=== PATIENT | female | born 1940 | race American Indian/Alaskan Native ===

== ENCOUNTER 2017-08-31 11:35 | Outpatient (CLI) | payer MEDICARE ==
--- NOTE | 2017-09-02 11:13 | Magnetic Resonance Report ---
BILATERAL BREAST MRI WITHOUT AND WITH CONTRAST: 08/31/17 11:35:00 CLINICAL: Newly diagnosed left breast cancer. COMPARISON:08/26/17 [facility] right mammogram and recent [facility] left mammograms. TECHNIQUE: Axial 1.0-mm T1 without, axial high resolution 2.0-mm T2 and axial 1.0-mm dynamic Vibrant high-resolution postcontrast T1 fat saturation sequences on a 1.5 Amanda magnet. The examination was performed with an 8 channel dedicated [place] breast coil. Post processing with CAD and subtraction was performed on an Assembly workstation. 15.0 cc of Multihance was injected without incident for the contrast portion of the exam. Consent was obtained prior to the administration of the contrast. FINDINGS: Right: Minimal background parenchymal enhancement. No mass or suspicious enhancement and specifically no finding in the upper outer quadrant to correlate with an asymmetry on the recent mammogram. No suspicious right axillary or right internal mammary lymph nodes. Left: Mild background parenchyma enhancement. The known cancer is an irregular enhancing mass at 6 o'clock 1.6 cm from the nipple measuring 2.1 x 2.0 x 2.2 cm. The mass contains a hydro-Jay biopsy clip. It demonstrates heterogeneous enhancement with mixed kinetics, 211% peak enhancement, and 24% type I persistent, 47% type II plateau and 29% type III washout waveforms. No other mass or suspicious enhancement. No suspicious left axillary or left internal mammary lymph nodes. IMPRESSION: 1. A known 2.2 cm left breast cancer and no additional suspicious lesion of either breast by MRI. However, after further review of the 08/26/17 right mammogram, a right stereotactic biopsy of upper outer calcifications is recommended to exclude malignancy. 2. No suspicious lymph nodes. RIGHT BI-RADS 4 -- Suspicious (Based on the mammographic finding of indeterminate right upper outer calcifications .) LEFT BI-RADS 6 -- Known Cancer
== END 2017-08-31 11:36 | disposition home or self-care (01) ==
LOC: SPVIMAG 11:35
PROVIDERS: ATTEND Surgery
DX: C50.412 Malignant neoplasm of upper-outer quadrant of left female breast (principal)
CPT/HCPCS: A9577; C8908; 77059

== ENCOUNTER 2017-09-06 13:41 | Outpatient (CLI) | payer MEDICARE ==
--- NOTE | 2017-09-06 16:14 | Mammography Report ---
STEREOTACTIC VACUUM ASSISTED BIOPSY WITH CLIP PLACEMENT RIGHT BREAST: 09/06/17 13:41:00 CLINICAL: Newly diagnosed left breast cancer and indeterminate calcifications of the right breast. COMPARISON:08/26/17 FINDINGS: Consent for the procedure was obtained. Calcifications in the upper-outer quadrant were targeted with stereotactic guidance. The skin was prepped with Betadine and anesthetized with 1% lidocaine. 2% lidocaine with epinephrine was injected for deeper anesthesia. 8 gauge Mammotome biopsy was performed from a lateral approach through a small dermatotomy. Prefire and post-fire images demonstrated satisfactory positioning of the probe. Samples were obtained around the clock face. A specimen radiograph confirmed satisfactory sampling with removal of desk representative calcifications. A clip was placed at the biopsy site and the deployment was confirmed with an image. The probe was removed and hemostasis was achieved with mild pressure. A sterile dressing was applied. The patient tolerated the procedure well and there were no apparent complications. Two view mammogram demonstrated removal of some calcifications and concordant placement of the biopsy clip. IMPRESSION: Uncomplicated stereotactic biopsy with clip placement right breast.
--- NOTE | 2017-09-06 16:15 | Mammography Report ---
RIGHT DIGITAL DIAGNOSTIC MAMMOGRAM: 09/06/17 13:41:00 CLINICAL: For clip placement immediately status post stereotactic biopsy. COMPARISON:08/26/17 FINDINGS: A biopsy clip is now identified in the upper outer quadrant and some calcifications had been removed. IMPRESSION: Concordant clip placement status post stereotactic biopsy. BI-RADS CATEGORY: 4--Suspicious Pathology pending.
== END 2017-09-06 13:42 | disposition home or self-care (01) ==
LOC: SPVWC 13:41
PROVIDERS: ATTEND Surgery
DX: N60.31 Fibrosclerosis of right breast (principal); N60.91 Unspecified benign mammary dysplasia of right breast; R92.0 Mammographic microcalcification found on diagnostic imaging of breast
CPT/HCPCS: 19081; 77065; 88305; A4648